=== PATIENT | male | born 1960 | race Caucasian/White ===

== ENCOUNTER 2020-10-25 13:57 | Emergency (ER) | payer MEDICARE, SELFPAY ==
--- NOTE | 2020-10-25 14:04 | ED.EXTPRO ---
HPI - Extremity Problem General Chief complaint: Extremity Problem,Nontraumatic Stated complaint: left knee pain Time Seen by Provider: 10/25/20 14:04 Source: patient and RN notes reviewed History of Present Illness HPI Narrative: Patient is a 60-year-old male who presents the urgent care with complaints of left knee pain. Patient states that he has chronic left knee pain due to an old ACL/MCL injury in 2007. Patient states that he sees Dr. Zepeda and patient did not have any surgery. Patient states that it does not typically bother him on a day-to-day basis but in the last couple days he has had severe pain and has been unable to bear any weight on the left leg. Patient has been using an old knee brace and crutches. Patient has not followed up with his orthopedic or his PCP regarding his pain. Denies any known injury or fall. Patient has not done anything for his pain prior to arrival. States that he has a follow-up with his PCP on Saturday. Denies of any shortness of breath or chest pain. No other acute complaints. No acute distress noted. Patient aware of the plan of care. Some parts of this dictation were generated by voice recognition software and may contain typographical and/or grammatical inaccuracies. Related Data Home Medications Medication Instructions Recorded Confirmed atorvastatin 80 mg DAILY 10/25/20 10/25/20 bupropion HCl 300 mg PO DAILY 10/25/20 10/25/20 carvedilol 3.125 mg DAILY 10/25/20 10/25/20 lisinopril 10 mg DAILY 10/25/20 10/25/20 metformin 500 mg PO BID 10/25/20 10/25/20 omeprazole 20 mg DAILY 10/25/20 10/25/20 trazodone 100 mg DAILY 10/25/20 10/25/20 Allergies Allergy/AdvReac Type Severity Reaction Status Date / Time No Known Allergies Allergy Verified 01/29/19 17:25 Review of Systems Review of Systems: Narrative: CONSTITUTIONAL: Denies fever, chills, or sweats. EYES: Denies visual changes, redness, or discharge. ENT: Denies rhinorrhea, congestion, sore throat, or otalgia. CARDIOVASCULAR: Denies chest pain, palpitations, or edema. RESPIRATORY: Denies cough or dyspnea. GASTROINTESTINAL: Denies abdominal pain, nausea, vomiting, or diarrhea. GENITOURINARY: Denies dysuria or hematuria. SKIN: Denies rash or itching. MUSCULOSKELETAL: Reports of acute on chronic left knee pain NEUROLOGIC: Denies headache, numbness, or weakness. All other systems reviewed are negative, except as documented in HPI. PMFSH Social History Social History Smoking status: Former smoker Smoking end date: 10/21/15 Alcohol intake: never Gender identity (if verbalized by the patient): Male Comments At the time of my signature, I reviewed and agree with the nursing past medical, surgical, social, and family history. There is no relevant family history pertinent to the patient complaint. Exam Narrative: Exam Narrative: GENERAL: This is a well-nourished, well-developed patient, in no apparent distress. HEAD: normocephalic, atraumatic. EYES: PERRL. Sclera clear/white. Vision is grossly intact. EARS: External ears normal NOSE: External nose normal with no obvious nasal discharge, nares without redness, no rhinorrhea. THROAT: Mucous membranes moist NECK: Neck supple SKIN: warm, intact with no suspicious lesions or rash, good texture and turgor. NEURO: awake, alert, and oriented to person, place and time. There were no obvious focal neurologic abnormalities. EXTREMITIES: Moderate edema to the left knee extending to the left calf. Calf measuring 13 cm versus right calf measuring 11.5 cm. Unable to assess range of motion of the left lower extremity due to swelling and pain. Patient unable to tolerate palpation of the left knee. Unable to tolerate for Homans test. Positive strong left pedal pulse with capillary refill less than 2 seconds. No obvious shortening of the left extremity. Course Vital Signs Vital signs: Vital Signs Temperature 98.9 F 10/25/20 14:09 Pulse Rate 89 10/25/20 14:09 Respiratory R
[2020-10-25 14:09] VITALS: BP 116/72; PULSE 89; RESP 20; TEMP 37.2; O2SAT 99
--- NOTE | 2020-10-25 14:33 | PC.NURSE ---
patient c/o calf pain informed nurse after the fact and was evaluated by [facility] for same patient refuses to go the ER signed AMA
== END 2020-10-25 14:31 | disposition left against medical advice (07) ==
PROVIDERS: Emergency Provider Nurse Practitioner Family; PCP Emergency Medicine
DX: M25.562 Pain in left knee (principal); M25.462 Effusion, left knee; Z87.891 Personal history of nicotine dependence; I25.10 Atherosclerotic heart disease of native coronary artery without angina pectoris; I10 Essential (primary) hypertension
CPT/HCPCS: 99211; G0463